=== PATIENT | female | born 1950 | race Caucasian/White ===

== ENCOUNTER 2021-12-25 21:49 | Inpatient (IN) | payer MEDICARE ==
[~2021-12-25] VITALS: Ht 162.6 cm; Wt 54.5 kg
--- NOTE | 2021-12-25 21:30 | NUR ---
Transferred from [facility] ER via EMS. A &O, in NAD. Aspen historian.
[2021-12-25 23:00] VITALS: BP 123/61
[2021-12-26 03:00] VITALS: BP 129/75
[2021-12-26] MEDS: methylPREDNISolone SOD SUCC PF 40 MG/ML VIAL. IV SCH ×3 (05:53→22:15)
[2021-12-26] MEDS: IPRATRPIUM/ALBUTEROL 0.5/2.5MG 3 ML NEBU. NEB SCH ×4 (06:15→20:01)
--- NOTE | 2021-12-26 06:30 | NUR ---
Rec'd 1st nebulizer treatment. Has slept soundly w/o dyspnea.
[2021-12-26 07:00] VITALS: BP 123/74
[2021-12-26] MEDS: AZITHROMYCIN 250 MG TABLET. PO SCH (08:42)
[2021-12-26 11:00] VITALS: BP 126/68
[2021-12-26] MEDS ORDERED: OLAN5TAB67 PO (11:01)
[2021-12-26] MEDS ORDERED: DIAZ5TAB4 PO (11:01)
[2021-12-26] MEDS ORDERED: MIRT-8 PO (11:01)
[2021-12-26] MEDS ORDERED: AZIT500T4 PO (11:02)
[2021-12-26 13:09] LABS: BASE EXCESS ABG 25 mmol/L (-3-3); HCO3 ABG 57 mmol/L (21-28); PO2 ABG 63 mmHg (65-108); SAT O2 ABG 93 % (92-99)
[2021-12-26 13:13] LABS: PCO2 ABG 116 mmHg (35-46)
[2021-12-26 13:14] LABS: FIO2 ABG 2.5 LPM
[2021-12-26 13:35] LABS: HEMATOCRIT 34.9 % (36.0-47.0); HEMOGLOBIN 10.9 g/dL (12.0-15.5); RED BLOOD COUNT 4.05 x10^6/uL (3.50-5.40); WHITE BLOOD COUNT 14.6 x10^3/uL (4.0-11.0)
[2021-12-26 13:39] LABS: ANION GAP 0 (6-14); BLOOD UREA NITROGEN 8 mg/dL (7-20); CALCIUM 8.8 mg/dL (8.5-10.1); CARBON DIOXIDE > 45 mmol/L (21-32); CHLORIDE 90 mmol/L (98-107); CREATININE 0.4 mg/dL (0.6-1.0); GFR 157.8; GLUCOSE 121 mg/dL (70-99); MAGNESIUM 2.1 mg/dL (1.8-2.4); POTASSIUM 4.3 mmol/L (3.5-5.1); SODIUM 135 mmol/L (136-145)
--- NOTE | 2021-12-26 14:48 | HP ---
DATE OF SERVICE: 12/26/2021 ADMIT DATE: 12/25/2021 HISTORY OF PRESENT ILLNESS: The patient is a 71-year-old female patient who presented to the Emergency Room of [facility] with worsening shortness of breath that apparently started the day before admission and has been gradually getting worse. The patient is known to have COPD and emphysema and used her nebulizer without much improvement. She apparently spoke with her maintenance welder who told her to come to the Emergency Room. The patient has had multiple hospitalizations. She stated that she is worse than she usually is. She has never had to be intubated for her COPD before, has had her COVID vaccine plus booster does of influenza vaccine and her pneumococcal vaccine. She denied any fever, cough or other systemic complaints, and she is normally on 2-3 liters by nasal cannula. She apparently has turned it up before she arrived and put on her oxygen at 2.5 liters. Her oxygen saturation was in the 70s. She increased her oxygen to 4 liters with improvement in her oxygen saturation. She was extensively investigated in the Emergency Room of [facility] and had lab work and imaging studies. Her lab work showed white cell count was 2.5 and she has hyponatremia and also hypochloremia and elevated bicarbonate. The combination suggested using either diuretics and/or vomiting, although the patient denied any vomiting. Her venous blood gas showed a pH of 7.40, pCO2 of 84, pO2 of 27 and bicarbonate of 53. Her D-dimer was slightly elevated at 1.22. Urinalysis was essentially unremarkable and her influenza A and B as well as coronavirus by rapid testing was negative. Her chest x-ray showed bilateral perihilar and basilar opacities, likely pulmonary edema or infection. She has trace bilateral pleural effusion. She did have CT angio of the chest, which showed no evidence of central pulmonary emboli. She has persistent bronchiectasis in the posterior basal segment of the left lower lobe and bilateral lung apices. She has briefly described pleural opacities, slightly more prominent compared to the prior exam, though this increased prominence could be in part related to subsegmental atelectasis and/or infiltrate. She has bibasilar infiltrate noted. Infectious and/or inflammatory etiologies should be considered. She has left upper lobe scarring, atelectasis and/or infiltrate appears similar compared to prior exam. The patient is known to have Mycobacterium avium-intracellulare and she is on suppressive therapy in the form of azithromycin 500 mg 3 times a week. According to the patient's , when her bacterial infection flares up, she tends to develop these symptoms. The patient was treated with ceftriaxone as well as Zithromax and was given also methylprednisolone and bronchodilator treatment and was transferred to [facility] for further evaluation and to consult the maintenance welder. PAST MEDICAL HISTORY: Significant for anxiety and depression, bronchial asthma, COPD as well as history of diverticulitis, Mycobacterium avium complex pneumonia. PAST SURGICAL HISTORY: Significant for bilateral cataract extraction, appendectomy, cholecystectomy, partial colectomy and colostomy with takedown. ALLERGIES: SHE IS ALLERGIC TO SULFA DRUGS. MEDICATIONS: She is currently on the following medications: She is on azithromycin 500 mg Thursday, Thursday, Thursday. She is no longer on ethambutol or rifampin. She is on albuterol sulfate 1 puff every 6 hours, aspirin 81 mg once a day, lorazepam 1 mg 3 times a day, and hydroxyzine 25 mg 3 times a day. FAMILY HISTORY: She is single child. Both parents are . Her father at the age of 89. Mother at age 86. SOCIAL HISTORY: She is , has 1 son. She tried smoking for 1 year when she was 20 years old. She has not smoked since. She does not drink alcohol or use recreational drugs. She used to work in a warehouse, however, she has been retired. REVIEW OF SYSTEMS: The patient denied any blurring of vision, cataracts, glaucoma or macular degeneration. Denied any earache, tinnitus or sensory deafness. Denied any nosebleed, stuffy nose or postnasal drip. Denied any sore throat, sore tongue, toothache, hoarseness of voice or difficulty swallowing. She has some anorexia, but denied any nausea, vomiting, diarrhea or constipation. Denied any hematemesis, melena or hematochezia. Denied any dysuria, frequency or hematuria. PHYSICAL EXAMINATION: GENERAL: On arrival to the Emergency Room, the patient was pale, cachectic, but not jaundiced or cyanosed, no lymphadenopathy, no thyromegaly, no jugular venous distention. No limb edema. VITAL SIGNS: Her heart rate was 110, blood pressure was 136/72, temperature was 98, respiratory rate was 18, and oxygen saturation was 80% on 4 liters. HEAD, EYES, EARS, NOSE, AND THROAT: Normocephalic, atraumatic. NECK: Supple. HEART: Showed normal first and second heart sounds. No gallop, rub or murmur. CHEST: Shows central trachea, equally reduced chest expansion, reduced air entry, vesicular breath sounds, bilateral coarse crepitation and very few scattered rhonchi. ABDOMEN: Distended, soft, nontender. NEUROLOGIC: She is awake, alert, responding appropriately. All cranial nerves intact. She moves extremities without difficulty. She definitely has marked muscle wasting and weakness. LABORATORY DATA: On arrival showed a white cell count of 10.5, hemoglobin 11.7, hematocrit 36, MCV 86, and platelet count of 248,000 with a manual differential showed 82% polymorphs, 7% lymphocytes and 10% monocytes. Her chemistry showed a serum sodium of 126, potassium 3.9, chloride 82, bicarbonate 35, anion gap of 9, BUN 9, creatinine 0.4, estimated GFR was 157 mL per minute, her glucose 192, calcium was 8.5, phosphorus 3.2, magnesium 2. Total bilirubin, AST, ALT, alkaline phosphatase were normal. Troponin I high sensitivity , beta natriuretic peptide was 975. Total protein 7.7, albumin was 2.9. Venous blood gas showed a pH 7.40, pCO2 of 84, pO2 of 27, bicarbonate of 53, and oxygen saturation was 47% on FiO2 of 21%. Her urinalysis showed trace leukocyte esterase, 3-5 rbc's, 5-10 wbc's and very few bacteria. Her influenza A and B were negative and SARS-CoV-2 antigen rapid testing was negative. ASSESSMENT AND PLAN: In summary, the patient was diagnosed with hyponatremia, pneumonia, chronic obstructive pulmonary disease. She has a history of Mycobacterium avium complex for which she is on suppressive treatment in the form of azithromycin. She also has history of paroxysmal atrial fibrillation with questionable congestive heart failure. The patient was transferred to [facility] to continue all her medications. I will consult the maintenance welder as well as the chicken hatchery helper. [facility] [place]: Marycruz TID: [id number]
[2021-12-26 15:00] VITALS: BP 127/69
--- NOTE | 2021-12-26 15:58 | NUR ---
SS following for discharge planning. SS reviewed pt chart and discussed with pt RN. Pt is from home with spouse and is currently requiring oxygen at four liters nasal canula. Pulmonology and Cardiology consulted. Pt on IV Rocephin and IV Solu-Medrol. Pt has home oxygen. SS will continue to follow for discharge planning.
--- NOTE | 2021-12-26 16:00 | PDOC2 ---
HELDER MOSS ENVIRONMENTAL MARKETER 12/26/21 1600: CARDIAC CONSULT DATE OF CONSULT Date of Consult DATE: 12/26/21 TIME: 15:55 REASON FOR CONSULT Reason for Consult: CHF, afib REFERRING PHYSICIAN Referring Physician: David SOURCE Source: Chart review, Patient HISTORY OF PRESENT ILLNESS HISTORY OF PRESENT ILLNESS This is a pleasant 71 yo female admitted for complains of shortness of breath. She was initially at [facility] and transferred here for further treatmen and referral to pulmonary. She has hx of COPD and mycobacterium avium pneumonia and uses home O2. No fever or chills. Denies any frequent palpitations and denies any arrhythmia, CAD or VTE. No increasing leg swelling. She has been SOA for a few days now despite using O2 at home. No confusion and presently no significant SOA. PAST MEDICAL HISTORY Cardiovascular: CHF, Valve insufficiency, Other (cardiomyopathy) Pulmonary: Asthma, COPD, Pneumonia GI: Diverticulosis PAST SURGICAL HISTORY Past Surgical History: Appendectomy, Cholecystectomy, Colon Resection FAMILY HISTORY Family History: Heart Disease (grandfather) SOCIAL HISTORY Smoke: No ALCOHOL: none Drugs: None Lives: with Family CURRENT MEDICATIONS CURRENT MEDICATIONS Current Medications Medications (Trade) Dose Ordered Sig/Danae Route PRN Reason Start Time Stop Time Status Last Admin Dose Admin Albuterol/ Ipratropium (Duoneb) 3 ml RTQID NEB 12/26/21 08:00 12/26/21 12:11 Methylprednisolone Sodium Succinate (SOLU-Medrol 40MG VIAL) 40 mg Q8HRS IV 12/26/21 06:00 12/26/21 14:08 Azithromycin (Zithromax) 250 mg DAILY PO 12/26/21 09:00 12/26/21 08:42 ALLERGIES ALLERGIES: Coded Allergies: Sulfa (Sulfonamide Antibiotics) (Verified Allergy, Intermediate, 12/25/21) headache ROS Review of System 14 point ROS evaluated with pertinent positives noted per HPI PHYSICAL EXAM General: Alert, Oriented X3, Cooperative, No acute distress HEENT: Atraumatic, Mucous membr. moist/pink Lungs: Other (diffuse rhonchi) Heart: Regular rate (no tele, EKG review with SR with first degreee AV block with PACs), Other (could not appreciate heart sounds due to lung adventitious sounds) Abdomen: Soft, No tenderness Extremities: No cyanosis, No edema Skin: No breakdown, No significant lesion Neuro: Normal speech, Sensation intact Psych/Mental Status: Mental status NL, Mood NL MUSCULOSKELETAL: Osteoarthritic changes both hands VITALS/I&O VITALS/I&O: Vital Signs Date Time Temp Pulse Resp B/P (MAP) Pulse Ox O2 Delivery O2 Flow Rate FiO2 12/26/21 12:11 97 Nasal Cannula 3.0 12/26/21 11:00 98.1 92 18 126/68 (87) 98.1 LABS Lab: Laboratory Tests Test 12/26/21 11:13 12/26/21 13:19 O2 Saturation 93 % (92-99) Arterial Blood pH 7.31 (7.35-7.45) L Arterial Blood pCO2 at Patient Temp 116 mmHg (35-46) *H Arterial Blood pO2 at Patient Temp 63 mmHg (65-108) L Arterial Blood HCO3 57 mmol/L (21-28) H Arterial Blood Base Excess 25 mmol/L (-3-3) H FiO2 2.5 lpm White Blood Count 14.6 x10^3/uL (4.0-11.0) H Red Blood Count 4.05 x10^6/uL (3.50-5.40) Hemoglobin 10.9 g/dL (12.0-15.5) L Hematocrit 34.9 % (36.0-47.0) L Mean Corpuscular Volume 86 fL (79-100) Mean Corpuscular Hemoglobin 27 pg (25-35) Mean Corpuscular Hemoglobin Concent 31 g/dL (31-37) Red Cell Distribution Width 14.0 % (11.5-14.5) Platelet Count 256 x10^3/uL (140-400) Sodium Level 135 mmol/L (136-145) L Potassium Level 4.3 mmol/L (3.5-5.1) Chloride Level 90 mmol/L (98-107) L Carbon Dioxide Level > 45 mmol/L (21-32) H Anion Gap 0 (6-14) L Blood Urea Nitrogen 8 mg/dL (7-20) Creatinine 0.4 mg/dL (0.6-1.0) L Estimated GFR (Cockcroft-Gault) 157.8 Glucose Level 121 mg/dL (70-99) H Calcium Level 8.8 mg/dL (8.5-10.1) Magnesium Level 2.1 mg/dL (1.8-2.4) Laboratory Tests 12/26/21 13:19 Laboratory Tests 12/26/21 13:19 ECHOCARDIOGRAM ECHOCARDIOGRAM <Conclusion> The Ejection Fraction is 40-45%. There is mild global hypokinesis of the left ventricle. Septal motion consistent with conduction defect. Doppler and Color-flow revealed mild to moderate eccentric mitral regurgitation. Doppler and Color Flow revealed mild tricuspid regurgitation. There is moderate pulmonary hypertension. The PA pressure was estimated at 48 mmHg. DATE: 03/27/20 1409 STRESS TEST STRESS TEST Conclusion 1. No evidence of EKG changes with stress testing. 2. Normal perfusion at stress/rest. 3. Low risk study. 4. EF > 60%. DATE: 04/19/20 1226 ASSESSMENT/PLAN ASSESSMENT/PLAN 1. AECOPD with bronchiectasis 2. Hx of Mycobacterium avum pneumonia 3. Acute on chronic hypercapnic respiratory failure: noted CO2 116. appears c ompensated. Unclear CO2 baseline 4. Hx of NICM 5. Hx of moderate MR 6. Chronic diastolic CHF: SOA more from #1 7. Arrhythmia: presently no tele. EKG reviewed with SR first degree AV block with PACs. No AFIB 8. Hyponatremia: improved Recommendations 1. Pulmonary consult 2. Repeat ABG. Bipap PRN 3. Antibiotics per PCP 4. TTE. Place on tele monitor. 5. Supportive care VINNIE TUBBS MD 12/26/212226: CARDIAC CONSULT ASSESSMENT/PLAN ASSESSMENT/PLAN Patient seen and examined. Agree with GAS AND OIL CHECKER's assessment and plan as noted above Check 2D echo and monitor tele for any arrhythmias Thank you for yoour consultation HELDER MOSS ENVIRONMENTAL MARKETER Dec 26, 2021 16:00 VINNIE TUBBS MD Dec 26, 2021 22:27
[2021-12-26] MEDS: cefTRIAXone IV Push 1 GM VIAL. IVP SCH (17:06)
[2021-12-26 19:00] VITALS: BP 106/54
[2021-12-26] MEDS: riFAMpin 300 MG CAPSULE. PO SCH (20:56)
[2021-12-26] MEDS: ETHAMBUTOL HCL 400 MG TABLET PO SCH (20:56)
[2021-12-26] MEDS: MIRTAZAPINE 15 MG TABLET PO SCH (20:57)
[2021-12-26] MEDS: LACTOBACILLUS RHAMNOSUS GG 1 CAPSULE. PO SCH (20:57)
[2021-12-26] MEDS: OLANZapine 5 MG TABLET PO SCH (20:58)
[2021-12-26 23:00] VITALS: BP 121/61
[2021-12-27 03:00] VITALS: BP 132/67
--- NOTE | 2021-12-27 04:06 | PN ---
DATE: 12/26/2021 SUBJECTIVE: The patient is resting, slightly propped up in bed, in no apparent respiratory distress. On questioning her about some shortness of breath, she denied any chest pain. She has cough that is mostly dry. Denies any chills or rigors. Denied any orthopnea or paroxysmal nocturnal dyspnea. Denied any swelling of the legs. PHYSICAL EXAMINATION: GENERAL: When I examined her, she looked pale, cachectic, but no jaundice, cyanosis or thyromegaly. No jugular venous distention. No limb edema. VITAL SIGNS: Her heart rate was 92, blood pressure was 126/68, temperature was 98.1, respiratory rate was 18 and oxygen saturation was 97 percent on 3 liters of oxygen. HEAD, EYES, EARS, NOSE, AND THROAT: Showed normocephalic, atraumatic. NECK: Supple. HEART: Normal first and second heart sounds. No gallop, rub or murmur. CHEST: Showed central trachea, equally reduced chest expansion, reduced air entry, vesicular breath sounds with bilateral coarse crepitation. Very few scattered rhonchi. ABDOMEN: Scaphoid, soft, nontender. NEUROLOGIC: She is awake, alert, responding appropriately. Cranial nerves intact. She moves extremities spontaneously, although she has marked muscle wasting. Her body mass index was only 20.6. LABORATORY WORK: Still pending at the time of this dictation. ASSESSMENT: 1. Acute on chronic hypoxic respiratory failure. 2. Chronic obstructive pulmonary disease exacerbation. 3. Chronic hypoxic respiratory failure. 4. Bronchiectasis. 5. History of Mycobacterium avium-intracellulare complex. The patient has a history also of atrial fibrillation with rapid ventricular response and possible congestive heart failure. PLAN: My plan is to continue with all her current medications including ceftriaxone, Zithromax, bronchodilators as well as Solu-Medrol as well as her lorazepam. I will add SCDs for DVT prophylaxis. I have consulted Dr. Ely as well as Dr. Noel to assist with her management. CARMELINA/GARY DR: Marycruz TID: [id number]
[2021-12-27] MEDS: methylPREDNISolone SOD SUCC PF 40 MG/ML VIAL. IV SCH ×3 (06:01→20:43)
[2021-12-27 06:17] LABS: BASO % 0 % (0-3); EOS % 0 % (0-3); HEMATOCRIT 34.5 % (36.0-47.0); HEMOGLOBIN 10.5 g/dL (12.0-15.5); LYMPH # 0.2 x10^3/uL (1.0-4.8); LYMPH % 2 % (24-48); MEAN CORPUSCULAR HEMOGLOBIN 26 pg (25-35); MEAN CORPUSCULAR HGB CONC 30 g/dL (31-37); MEAN CORPUSCULAR VOLUME 87 fL (79-100); MONO # 0.5 x10^3/uL (0.0-1.1); MONO % 4 % (0-9); NEUT # 11.6 x10^3/uL (1.8-7.7); NEUT % 94 % (31-73); PLATELET COUNT 237 x10^3/uL (140-400); RED BLOOD COUNT 3.98 x10^6/uL (3.50-5.40); WHITE BLOOD COUNT 12.4 x10^3/uL (4.0-11.0)
[2021-12-27 06:39] LABS: ALBUMIN 2.4 g/dL (3.4-5.0); ALBUMIN/GLOBULIN RATIO 0.5 (1.0-1.7); ALK PHOS 59 U/L (46-116); ALT (SGPT) 7 U/L (14-59); AST (SGOT) 10 U/L (15-37); BLOOD UREA NITROGEN 8 mg/dL (7-20); BUN/CREATININE RATIO 27 (6-20); C-REACTIVE PROTEIN 28.9 mg/L (0-3.3); CALCIUM 8.7 mg/dL (8.5-10.1); CHLORIDE 90 mmol/L (98-107); CREATININE 0.3 mg/dL (0.6-1.0); GFR 219.9; GLUCOSE 123 mg/dL (70-99); POTASSIUM 4.2 mmol/L (3.5-5.1); SODIUM 133 mmol/L (136-145); TOTAL BILIRUBIN 0.6 mg/dL (0.2-1.0); TOTAL PROTEIN 7.3 g/dL (6.4-8.2)
[2021-12-27 06:41] LABS: CARBON DIOXIDE > 45 mmol/L (21-32)
[2021-12-27 07:00] VITALS: BP 122/61
[2021-12-27] MEDS: IPRATRPIUM/ALBUTEROL 0.5/2.5MG 3 ML NEBU. NEB SCH ×4 (07:02→20:23)
--- NOTE | 2021-12-27 08:16 | PDOC ---
PULMONARY PROGRESS NOTES DATE: 12/27/21 TIME: 08:16 Subjective Patient still short of breath, appetite is poor, feels weak. Coughing up green sputum Vitals Vital Signs Date Time Temp Pulse Resp B/P (MAP) Pulse Ox O2 Delivery O2 Flow Rate FiO2 12/27/21 07:02 92 Nasal Cannula 2.5 12/27/21 07:00 97.4 98 16 122/61 (81) 97.4 ROS: No Nausea, No Chest Pain, No Abdominal Pain, No Increase Cough General: Alert Lungs: Crackles Cardiovascular: S1, S2 Abdomen: Soft Neuro Exam: Alert Extremities: No Edema Skin: Warm Labs Laboratory Tests Test 12/26/21 11:13 12/26/21 13:19 12/27/21 04:50 O2 Saturation 93 % (92-99) Arterial Blood pH 7.31 (7.35-7.45) Arterial Blood pCO2 at Patient Temp 116 mmHg (35-46) Arterial Blood pO2 at Patient Temp 63 mmHg (65-108) Arterial Blood HCO3 57 mmol/L (21-28) Arterial Blood Base Excess 25 mmol/L (-3-3) FiO2 2.5 lpm White Blood Count 14.6 x10^3/uL (4.0-11.0) 12.4 x10^3/uL (4.0-11.0) Red Blood Count 4.05 x10^6/uL (3.50-5.40) 3.98 x10^6/uL (3.50-5.40) Hemoglobin 10.9 g/dL (12.0-15.5) 10.5 g/dL (12.0-15.5) Hematocrit 34.9 % (36.0-47.0) 34.5 % (36.0-47.0) Mean Corpuscular Volume 86 fL (79-100) 87 fL (79-100) Mean Corpuscular Hemoglobin 27 pg (25-35) 26 pg (25-35) Mean Corpuscular Hemoglobin Concent 31 g/dL (31-37) 30 g/dL (31-37) Red Cell Distribution Width 14.0 % (11.5-14.5) 14.0 % (11.5-14.5) Platelet Count 256 x10^3/uL (140-400) 237 x10^3/uL (140-400) Sodium Level 135 mmol/L (136-145) 133 mmol/L (136-145) Potassium Level 4.3 mmol/L (3.5-5.1) 4.2 mmol/L (3.5-5.1) Chloride Level 90 mmol/L (98-107) 90 mmol/L (98-107) Carbon Dioxide Level > 45 mmol/L (21-32) > 45 mmol/L (21-32) Anion Gap 0 (6-14) (6-14) Blood Urea Nitrogen 8 mg/dL (7-20) 8 mg/dL (7-20) Creatinine 0.4 mg/dL (0.6-1.0) 0.3 mg/dL (0.6-1.0) Estimated GFR (Cockcroft-Gault) 157.8 219.9 Glucose Level 121 mg/dL (70-99) 123 mg/dL (70-99) Calcium Level 8.8 mg/dL (8.5-10.1) 8.7 mg/dL (8.5-10.1) Magnesium Level 2.1 mg/dL (1.8-2.4) Neutrophils (%) (Auto) 94 % (31-73) Lymphocytes (%) (Auto) 2 % (24-48) Monocytes (%) (Auto) 4 % (0-9) Eosinophils (%) (Auto) 0 % (0-3) Basophils (%) (Auto) 0 % (0-3) Neutrophils # (Auto) 11.6 x10^3/uL (1.8-7.7) Lymphocytes # (Auto) 0.2 x10^3/uL (1.0-4.8) Monocytes # (Auto) 0.5 x10^3/uL (0.0-1.1) Eosinophils # (Auto) 0.0 x10^3/uL (0.0-0.7) Basophils # (Auto) 0.0 x10^3/uL (0.0-0.2) BUN/Creatinine Ratio 27 (6-20) Total Bilirubin 0.6 mg/dL (0.2-1.0) Aspartate Amino Transf (AST/SGOT) 10 U/L (15-37) Alanine Aminotransferase (ALT/SGPT) 7 U/L (14-59) Alkaline Phosphatase 59 U/L (46-116) C-Reactive Protein, Quantitative 28.9 mg/L (0-3.3) Total Protein 7.3 g/dL (6.4-8.2) Albumin 2.4 g/dL (3.4-5.0) Albumin/Globulin Ratio 0.5 (1.0-1.7) Laboratory Tests Test 12/26/21 11:13 12/26/21 13:19 12/27/21 04:50 O2 Saturation 93 % (92-99) Arterial Blood pH 7.31 (7.35-7.45) Arterial Blood pCO2 at Patient Temp 116 mmHg (35-46) Arterial Blood pO2 at Patient Temp 63 mmHg (65-108) Arterial Blood HCO3 57 mmol/L (21-28) Arterial Blood Base Excess 25 mmol/L (-3-3) FiO2 2.5 lpm White Blood Count 14.6 x10^3/uL (4.0-11.0) 12.4 x10^3/uL (4.0-11.0) Red Blood Count 4.05 x10^6/uL (3.50-5.40) 3.98 x10^6/uL (3.50-5.40) Hemoglobin 10.9 g/dL (12.0-15.5) 10.5 g/dL (12.0-15.5) Hematocrit 34.9 % (36.0-47.0) 34.5 % (36.0-47.0) Mean Corpuscular Volume 86 fL (79-100) 87 fL (79-100) Mean Corpuscular Hemoglobin 27 pg (25-35) 26 pg (25-35) Mean Corpuscular Hemoglobin Concent 31 g/dL (31-37) 30 g/dL (31-37) Red Cell Distribution Width 14.0 % (11.5-14.5) 14.0 % (11.5-14.5) Platelet Count 256 x10^3/uL (140-400) 237 x10^3/uL (140-400) Sodium Level 135 mmol/L (136-145) 133 mmol/L (136-145) Potassium Level 4.3 mmol/L (3.5-5.1) 4.2 mmol/L (3.5-5.1) Chloride Level 90 mmol/L (98-107) 90 mmol/L (98-107) Carbon Dioxide Level > 45 mmol/L (21-32) > 45 mmol/L (21-32) Anion Gap 0 (6-14) (6-14) Blood Urea Nitrogen 8 mg/dL (7-20) 8 mg/dL (7-20) Creatinine 0.4 mg/dL (0.6-1.0) 0.3 mg/dL (0.6-1.0) Estimated GFR (Cockcroft-Gault) 157.8 219.9 Glucose Level 121 mg/dL (70-99) 123 mg/dL (70-99) Calcium Level 8.8 mg/dL (8.5-10.1) 8.7 mg/dL (8.5-10.1) Magnesium Level 2.1 mg/dL (1.8-2.4) Neutrophils (%) (Auto) 94 % (31-73) Lymphocytes (%) (Auto) 2 % (24-48) Monocytes (%) (Auto) 4 % (0-9) Eosinophils (%) (Auto) 0 % (0-3) Basophils (%) (Auto) 0 % (0-3) Neutrophils # (Auto) 11.6 x10^3/uL (1.8-7.7) Lymphocytes # (Auto) 0.2 x10^3/uL (1.0-4.8) Monocytes # (Auto) 0.5 x10^3/uL (0.0-1.1) Eosinophils # (Auto) 0.0 x10^3/uL (0.0-0.7) Basophils # (Auto) 0.0 x10^3/uL (0.0-0.2) BUN/Creatinine Ratio 27 (6-20) Total Bilirubin 0.6 mg/dL (0.2-1.0) Aspartate Amino Transf (AST/SGOT) 10 U/L (15-37) Alanine Aminotransferase (ALT/SGPT) 7 U/L (14-59) Alkaline Phosphatase 59 U/L (46-116) C-Reactive Protein, Quantitative 28.9 mg/L (0-3.3) Total Protein 7.3 g/dL (6.4-8.2) Albumin 2.4 g/dL (3.4-5.0) Albumin/Globulin Ratio 0.5 (1.0-1.7) Medications Active Scripts Medications Dose Route/Sig Max Daily Dose Days Date Category Azithromycin Tablet (Azithromycin) 500 Mg Tablet 1 Tab PO 3X/WEEK 5 12/26/21 Reported Diazepam 5 Mg Tablet 5 Mg PO BID 12/26/21 Reported Mirtazapine 30 Mg Tablet 1 Tab PO QHS 12/26/21 Reported Olanzapine 5 Mg Tablet 0.5 Tab PO QHS 12/26/21 Reported Impression . IMPRESSION: 1. Acute on chronic hypoxemic hypercapnic respiratory failure. 2. Abnormal CT revealing evidence of bronchiectasis in a patient with previous Mycobacterium avium complex. 3. Suspect recurrent and persistent Mycobacterium avium complex infection. 4. Possible bacterial infection, gram-negative. 5. Protein malnutrition present upon admission. 6. History of depression and anxiety. 7. History of bronchial asthma. Plan . Updated 12/27 at the bedside, updated pain Continue 3 drug regimen for active Mycobacterium avium complex infection Continue Rocephin Nebulized treatments Hypertonic saline Decrease FiO2 to 1.5 L, ABG noted. 12/26 1. We will initiate 3-drug regimen for recurrent acute Mycobacterium avium complex. Case discussed with pharmacology regarding dosages of rifampin and ethambutol. 2. Continue Zithromax. 3. Continue Rocephin. 4. Nebulized treatments. 5. Decrease FiO2 supplement to 1 liter, do not titrate up, the patient in the past has never been intubated. She has not been on noninvasive ventilation. Suspect hypercapnia is mainly related to muscle weakness and hypoventilation along with underlying and end-stage obstructive lung disease. 6. Continue nutritional support. 7. Monitor liver function testing. 8. Steroids. Dr. Hernandez, I do appreciate the privilege in sharing in the patient's care. MART LOVETT MD Dec 27, 2021 08:16
[2021-12-27] MEDS: LACTOBACILLUS RHAMNOSUS GG 1 CAPSULE. PO SCH ×2 (08:23→20:43)
[2021-12-27] MEDS: AZITHROMYCIN 250 MG TABLET. PO SCH (08:23)
--- NOTE | 2021-12-27 09:20 | CONS ---
DATE OF CONSULTATION: 12/26/2021 ATTENDING PHYSICIAN: Stephany Hernandez MD CONSULTING PHYSICIAN: Massimo Ely MD REASON FOR CONSULTATION: The patient is seen in pulmonary consultation at the request of Dr. Hernandez for abnormal chest x-ray, history of Mycobacterium avium complex, abnormal arterial blood gas. HISTORY OF PRESENT ILLNESS: The patient is a 71-year-old that was diagnosed with Mycobacterium avium complex several years ago by Dr. Barnett at [facility]. She now follows a pharmacy intake technician at [facility]. She was given a 3-drug regimen for approximately a year. She is now down to azithromycin as a prophylaxis dose. The patient presented with increasing shortness of breath, cough, mostly productive of some dark sputum. No fever, no hemoptysis. Her appetite is adequate. She thinks she has lost a great deal of weight. She presented to the Emergency Room at [facility]. She underwent a CT chest. CT was personally reviewed. There have been increasing infiltrates and reticular type of nodular infiltrates. She was transferred to [place] for further management. The scan was also performed for PE. There was no evidence of central pulmonary embolism. There was persistent bronchiectasis in the posterior segment of left lower lobe. There was also some slightly more prominent opacities in comparison to previous films. The patient is chronically on oxygen supplementation. She presented. She underwent an arterial blood gas revealing a pH 7.31, PaCO2 of 116, pO2 of 63 on 2.5 liters. I was informed of the blood gas. I asked the nurse to drop the oxygen supplementation to 1 liter. Upon my evaluation, the patient was awake, alert, following command. She did not appear to be cyanotic or confused. PAST MEDICAL HISTORY: As indicated above, prior history of chronic Mycobacterium avium complex. She has been on treatment with a 3-drug regimen for some time. She was brought down to Zithromax prophylaxis. Follows a pharmacy intake technician at [facility]. There is also a history of depression, anxiety, diverticulosis. She has never smoked. There is a history of bronchial asthma. ALLERGIES: SULFA. REVIEW OF SYSTEMS: As indicated above, otherwise a 10-point system was reviewed and negative. PAST SURGICAL HISTORY: Bilateral cataracts, appendectomy, cholecystectomy, partial colectomy, colostomy with reversal. FAMILY HISTORY: Both parents . Father at the age of 89. SOCIAL HISTORY: She is , has one son. Smoked for a short period of time when she was at the age of 20. 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 CURRENT MEDICATIONS: List was reviewed. PHYSICAL EXAMINATION: GENERAL: The patient appeared to be chronically ill. She had a body mass index of 20. She has some temporal wasting. VITAL SIGNS: Her respiratory rate was elevated. She is currently on 1 liter saturation 95%. She has been afebrile since admission. HEENT: Eyes: The sclerae were nonicteric. NECK: Jugular venous distention was not elevated. Temporal wasting was prominent. CHEST: Full expansion. LUNGS: Crackles and squeaky type of breath sounds anteriorly bilaterally. CARDIOVASCULAR: Regular rate and rhythm with S1, S2, no S3. ABDOMEN: Soft. EXTREMITIES: No clubbing or cyanosis. Minimal edema. LABORATORY DATA: White count was elevated. Hemoglobin and hematocrit were noted. Electrolytes were noted. CT as indicated above. IMPRESSION: 1. Acute on chronic hypoxemic hypercapnic respiratory failure. 2. Abnormal CT revealing evidence of bronchiectasis in a patient with previous Mycobacterium avium complex. 3. Suspect recurrent and persistent Mycobacterium avium complex infection. 4. Possible bacterial infection, gram-negative. 5. Protein malnutrition present upon admission. 6. History of depression and anxiety. 7. History of bronchial asthma. PLAN: 1. We will initiate 3-drug regimen for recurrent acute Mycobacterium avium complex. Case discussed with pharmacology regarding dosages of rifampin and ethambutol. 2. Continue Zithromax. 3. Continue Rocephin. 4. Nebulized treatments. 5. Decrease FiO2 supplement to 1 liter, do not titrate up, the patient in the past has never been intubated. She has not been on noninvasive ventilation. Suspect hypercapnia is mainly related to muscle weakness and hypoventilation along with underlying and end-stage obstructive lung disease. 6. Continue nutritional support. 7. Monitor liver function testing. 8. Steroids. Dr. Hernandez, I do appreciate the privilege in sharing in the patient's care. REBECCA/GARY DR: Brittany TID: [id number]
--- NOTE | 2021-12-27 10:09 | PN ---
DATE: 12/27/2021 SUBJECTIVE: The patient is resting, slightly propped up in bed, in no apparent respiratory distress. She is awake, alert. On questioning her, she, just apart from being cold, denied any other complaint. Nursing staff states that she has eaten her breakfast this morning. She was seen in consultation by the borematic operator who cut down her oxygen supplementation to only 1 liter. PHYSICAL EXAMINATION: GENERAL: When I saw her this morning, she looked pale, cachectic, but not jaundiced or cyanosed, no lymphadenopathy, no thyromegaly, no jugular venous distention. No lower limb edema. VITAL SIGNS: Her heart rate was 98, blood pressure was 122/61, temperature 97.4, respiratory rate was 16 and oxygen saturation was 92% on 1 liter of oxygen. HEAD, EYES, EARS, NOSE, AND THROAT: Normocephalic, atraumatic. NECK: Supple. HEART: Showed normal first and second heart sounds. No gallop or murmur. CHEST: Shows central trachea, equally reduced expansion, reduced air entry, bilateral coarse crepitation, very few scattered rhonchi. ABDOMEN: Scaphoid, soft, nontender. NEUROLOGIC: She was grossly intact. Her intake over the last 24 hours was 390, output 151. LABORATORY DATA: As of this morning, her white cell count was 12.4, hemoglobin 10.5, hematocrit 34, MCV 87 and platelet count 237,000 with a manual differential showed 94% polymorphs, 2% lymphocytes and 4% monocytes. Her serum sodium is 133, potassium 4.2, chloride 90, bicarbonate 45, anion gap of 0, BUN of 8, creatinine 0.3, estimated GFR was 219 mL per minute. Her glucose 123, calcium was 8.7. Total bilirubin, AST, ALT, alkaline phosphatase are normal. Total protein 7.3, albumin 2.4. Her sedimentation rate was 46 mm per hour and C-reactive protein was 28.9 mg/dL. ASSESSMENT: 1. Acute on chronic hypoxic hypercapnic respiratory failure. 2. Chronic obstructive pulmonary disease exacerbation. 3. Chronic hypoxic respiratory failure. 4. Bronchiectasis. 5. History of Mycobacterium avium intracellulare complex infection. 6. The patient has a history of atrial fibrillation with rapid ventricular response as well as congestive heart failure. PLAN: The patient was apparently started on her ethambutol and rifampin for her Mycobacterium avium. Continue with bronchodilator as well as steroids. Continue with oxygen supplementation as recommended by the borematic operator. Continue with IV ceftriaxone and Zithromax for possible community-acquired pneumonia. ENDY DR: Marycruz TID: [id number]
[2021-12-27 10:33] LABS: % MONOS 3 % (0-10); % SEGS 97 % (35-66); PLT ESTIMATE ADEQUATE (ADEQUATE)
[2021-12-27 11:00] VITALS: BP 120/55
[2021-12-27 11:32] LABS: BASE EXCESS ABG 23 mmol/L (-3-3); HCO3 ABG 53 mmol/L (21-28); SAT O2 ABG 84 % (92-99)
[2021-12-27 11:33] LABS: PCO2 ABG 100 mmHg (35-46)
[2021-12-27 11:34] LABS: FIO2 ABG 24% 1LNC; PO2 ABG 45 mmHg (65-108)
--- NOTE | 2021-12-27 11:57 | PDOC ---
HELDER MOSS CREDIT REPORTING CLERK 12/27/21 1157: CARDIO Progress Notes Date and Time Date of Service 12/27/2021 Time of Evaluation 1130 Subjective Subjective: No Chest Pain, No shortness of breath, No Palpitations Vitals Vitals Vital Signs Date Time Temp Pulse Resp B/P (MAP) Pulse Ox O2 Delivery O2 Flow Rate FiO2 12/27/21 11:13 89 Nasal Cannula 1.0 12/27/21 07:00 97.4 98 16 122/61 (81) 97.4 Weight Weight [ ] Input and Output Intake and Output Intake and Output 12/27/21 07:00 Intake Total 390 ml Output Total 151 ml Balance 239 ml Intake Oral 390 ml Output Urine Total 151 ml Laboratory Labs Laboratory Tests Test 12/26/21 13:19 12/27/21 04:50 12/27/21 11:30 White Blood Count 14.6 x10^3/uL (4.0-11.0) 12.4 x10^3/uL (4.0-11.0) Red Blood Count 4.05 x10^6/uL (3.50-5.40) 3.98 x10^6/uL (3.50-5.40) Hemoglobin 10.9 g/dL (12.0-15.5) 10.5 g/dL (12.0-15.5) Hematocrit 34.9 % (36.0-47.0) 34.5 % (36.0-47.0) Mean Corpuscular Volume 86 fL (79-100) 87 fL (79-100) Mean Corpuscular Hemoglobin 27 pg (25-35) 26 pg (25-35) Mean Corpuscular Hemoglobin Concent 31 g/dL (31-37) 30 g/dL (31-37) Red Cell Distribution Width 14.0 % (11.5-14.5) 14.0 % (11.5-14.5) Platelet Count 256 x10^3/uL (140-400) 237 x10^3/uL (140-400) Sodium Level 135 mmol/L (136-145) 133 mmol/L (136-145) Potassium Level 4.3 mmol/L (3.5-5.1) 4.2 mmol/L (3.5-5.1) Chloride Level 90 mmol/L (98-107) 90 mmol/L (98-107) Carbon Dioxide Level > 45 mmol/L (21-32) > 45 mmol/L (21-32) Anion Gap 0 (6-14) (6-14) Blood Urea Nitrogen 8 mg/dL (7-20) 8 mg/dL (7-20) Creatinine 0.4 mg/dL (0.6-1.0) 0.3 mg/dL (0.6-1.0) Estimated GFR (Cockcroft-Gault) 157.8 219.9 Glucose Level 121 mg/dL (70-99) 123 mg/dL (70-99) Calcium Level 8.8 mg/dL (8.5-10.1) 8.7 mg/dL (8.5-10.1) Magnesium Level 2.1 mg/dL (1.8-2.4) Neutrophils (%) (Auto) 94 % (31-73) Lymphocytes (%) (Auto) 2 % (24-48) Monocytes (%) (Auto) 4 % (0-9) Eosinophils (%) (Auto) 0 % (0-3) Basophils (%) (Auto) 0 % (0-3) Neutrophils # (Auto) 11.6 x10^3/uL (1.8-7.7) Lymphocytes # (Auto) 0.2 x10^3/uL (1.0-4.8) Monocytes # (Auto) 0.5 x10^3/uL (0.0-1.1) Eosinophils # (Auto) 0.0 x10^3/uL (0.0-0.7) Basophils # (Auto) 0.0 x10^3/uL (0.0-0.2) Segmented Neutrophils % 97 % (35-66) Monocytes % 3 % (0-10) Platelet Estimate Adequate (ADEQUATE) Erythrocyte Sedimentation Rate 46 (0-25) BUN/Creatinine Ratio 27 (6-20) Total Bilirubin 0.6 mg/dL (0.2-1.0) Aspartate Amino Transf (AST/SGOT) 10 U/L (15-37) Alanine Aminotransferase (ALT/SGPT) 7 U/L (14-59) Alkaline Phosphatase 59 U/L (46-116) C-Reactive Protein, Quantitative 28.9 mg/L (0-3.3) Total Protein 7.3 g/dL (6.4-8.2) Albumin 2.4 g/dL (3.4-5.0) Albumin/Globulin Ratio 0.5 (1.0-1.7) O2 Saturation 84 % (92-99) Arterial Blood pH 7.34 (7.35-7.45) Arterial Blood pCO2 at Patient Temp 100 mmHg (35-46) Arterial Blood pO2 at Patient Temp 45 mmHg (65-108) Arterial Blood HCO3 53 mmol/L (21-28) Arterial Blood Base Excess 23 mmol/L (-3-3) FiO2 24% 1lnc Physical Exam HEENT: Neck Supple W Full Motion Chest: Symmetric LUNGS: Other (diffuse rhonchi) Heart: RRR (SR/ST) Abdomen: Soft N/T Extremities: No Edema Neurology: alert, oriented, follow commands Assessment Assessment 1. AECOPD with bronchiectasis 2. recurrent Mycobacterium avium pneumonia per pulmonary 3. Acute on chronic hypoxemic hypercapnic respiratory failure: appears compensated. Unclear CO2 baseline 4. Hx of NICM 5. Hx of moderate MR 6. Chronic diastolic CHF: SOA more from #1 7. Arrhythmia: EKG reviewed with SR first degree AV block with PACs. No AFIB. Presently sinus tachycardia, reactive post albuterol treatment 8. Hyponatremia: improved Recommendations 1. Antibiotics per Pulmonary 2. Secondary prevention measures pending TTE 3. Supportive care Justicifation of Admission Dx: Justifications for Admission: Justification of Admission Dx: Yes VINNIE TUBBS MD 12/27/212224: CARDIO Progress Notes Assessment Assessment Patient seen and examined. Agree with WORKSHOP MANAGER's assessment and plan as noted above 2D echo showed normal LV systolic function Chr diast HF well compensated Continue treatment o AECOPD per pulm team Follow up with our office as schedule HELDER MOSS APRN Dec 27, 2021 11:57 VINNIE TUBBS MD Dec 27, 2021 22:25
[2021-12-27] MEDS: ETHAMBUTOL HCL 400 MG TABLET PO SCH (12:44)
--- NOTE | 2021-12-27 14:24 | NUR ---
SS following up with discharge planning. SS reviewed pt chart and discussed with pt RN. Pt is currently requiring oxygen at two and a half liters nasal canula. Pulmonology and Cardiology following. Pt on IV Solu-Medrol and IV Rocephin. Pt has home oxygen. SS will continue to follow for discharge planning.
[2021-12-27 15:00] VITALS: BP 133/67
[2021-12-27] MEDS: cefTRIAXone IV Push 1 GM VIAL. IVP SCH (15:47)
[2021-12-27] MEDS: riFAMpin 300 MG CAPSULE. PO SCH (15:47)
--- NOTE | 2021-12-27 18:45 | CARD ---
MR#: [id number] Date of Study: 12/27/2021 Ordering Physician: HELDER MOSS, Referring Physician: HELDER MOSS Tech: Brittani Roa [facility] APPROVED REPORT EXAM: Two-dimensional and M-mode echocardiogram with Doppler and color Doppler. Other Information Quality : AverageHR: 90bpm Rhythm : NSR INDICATION Dyspnea 2D DIMENSIONS RVDd3.1 (2.9-3.5cm)Left Atrium(2D)3.4 (1.6-4.0cm) IVSd1.0 (0.7-1.1cm)Aortic Root(2D)3.5 (2.0-3.7cm) LVDd5.4 (3.9-5.9cm)LVOT Diameter2.0 (1.8-2.4cm) PWd0.9 (0.7-1.1cm)LVDs4.1 (2.5-4.0cm) FS (%) 24.5 %SV68.2 ml LVEF(%)48.1 (>50%) Aortic Valve AoV Peak Breezy.194.0cm/sAoV VTI36.0cm AO Peak GR.15.1mmHgLVOT Peak Breezy.134.5cm/s AO Mean GR.7mmHgAVA (VMAX)2.16cm2 Pulmonary Valve PV Peak Cwwgvcbw38.8cm/s Tricuspid Valve TR P. Kfyqjjwu227gy/sTR Peak Gr.48mmHg LEFT VENTRICLE The left ventricle is normal size. There is normal left ventricular wall thickness. The left ventricl e systolic function is normal. The ejection fraction is estimated at 55%. RIGHT VENTRICLE The right ventricle is normal size. There is normal right ventricular wall thickness. Systolic functi on is moderately reduced. ATRIA The left atrium size is normal. Right atrium is moderately enlarged. The interatrial septum is intact with no evidence for an atrial septal defect or patent foramen ovale as noted on 2-D or Doppler imag ing. AORTIC VALVE The aortic valve is normal in structure and function. Doppler and Color Flow revealed trace aortic re gurgitation. There is no significant aortic valvular stenosis. MITRAL VALVE The mitral valve is normal in structure and function. There is no evidence of mitral valve prolapse. There is no mitral valve stenosis. Doppler and Color-flow revealed mild mitral regurgitation. TRICUSPID VALVE The tricuspid valve is normal in structure and function. Doppler and Color Flow revealed mild tricusp id regurgitation. Estimated PAP 50 mmHg. There is no tricuspid valve stenosis. PULMONIC VALVE The pulmonary valve is normal in structure and function. Doppler and Color Flow revealed trace pulmon ic valvular regurgitation. GREAT VESSELS The aortic root is normal in size. The ascending aorta is normal in size. The IVC is normal in size a nd collapses >50% with inspiration. PERICARDIAL EFFUSION There is no evidence of significant pericardial effusion. Critical Notification Critical Value: No <Conclusion> The left ventricle systolic function is normal. The ejection fraction is estimated at 55%. Mild mitral regurgitation. Mild tricuspid regurgitation. Estimated PAP 50 mmHg. There is no evidence of significant pericardial effusion. Signed by : Caden Acosta, Electronically Approved : 12/27/2021 18:45:38
[2021-12-27 19:00] VITALS: BP 121/62
[2021-12-27] MEDS: SODIUM CHLORIDE 3% NEB SCH (20:00)
[2021-12-27] MEDS: MIRTAZAPINE 15 MG TABLET PO SCH (20:43)
[2021-12-27] MEDS: OLANZapine 5 MG TABLET PO SCH (20:43)
[2021-12-27 23:00] VITALS: BP 145/73
[2021-12-28 03:03] VITALS: BP 141/86
[2021-12-28] MEDS: methylPREDNISolone SOD SUCC PF 40 MG/ML VIAL. IV SCH ×2 (05:30→14:06)
[2021-12-28 07:00] VITALS: BP 137/71
[2021-12-28] MEDS: IPRATRPIUM/ALBUTEROL 0.5/2.5MG 3 ML NEBU. NEB SCH ×3 (07:06→15:30)
--- NOTE | 2021-12-28 07:19 | PDOC ---
PROGRESS NOTES Date of Service: DATE: 12/28/21 TIME: 07:19 Subjective Subjective c/o dyspnea Objective Objective Vital Signs Date Time Temp Pulse Resp B/P (MAP) Pulse Ox O2 Delivery O2 Flow Rate FiO2 12/28/21 07:08 95 Nasal Cannula 1.5 12/28/21 03:03 97.9 110 20 141/86 (104) 97.9 Intake and Output 12/28/21 07:00 Intake Total 250 ml Output Total 200 ml Balance 50 ml Intake Oral 250 ml Output Urine Total 200 ml # Voids 3 Assessment Assessment 1. AECOPD with bronchiectasis 2. Recurrent Mycobacterium avium pneumonia per pulmonary 3. Acute on chronic hypoxemic hypercapnic respiratory failure: appears compensated. Unclear CO2 baseline 4. Hx of NICM 5. Hx of moderate MR 6. Chronic diastolic CHF: SOA more from #1 7. Arrhythmia: EKG reviewed with SR first degree AV block with PACs. No AFIB. 8. Hyponatremia: improved Recommendations 1. Antibiotics per Pulmonary 2. 2D echo showed normal LV systolic function with EF 55% 3. Supportive care Comment Review of Relevant I have reviewed the following items mateusz (where applicable) has been applied. Labs Laboratory Tests Test 12/27/21 11:30 O2 Saturation 84 % (92-99) Arterial Blood pH 7.34 (7.35-7.45) Arterial Blood pCO2 at Patient Temp 100 mmHg (35-46) Arterial Blood pO2 at Patient Temp 45 mmHg (65-108) Arterial Blood HCO3 53 mmol/L (21-28) Arterial Blood Base Excess 23 mmol/L (-3-3) FiO2 24% 1lnc Medications Current Medications Sodium Chloride (Sodium Chloride 3% Neb) 5 ml RTQID NEB ; Start 12/27/21 at 16:00 Vitals/I & O Vital Sign - Last 24 Hours 12/27/21 12/27/21 12/27/21 12/27/21 08:00 11:00 11:13 15:00 Temp 98.2 98.4 98.2 98.4 Pulse 106 107 Resp 18 16 B/P (MAP) 120/55 (76) 133/67 (89) Pulse Ox 90 89 90 O2 Delivery Nasal Cannula Nasal Cannula Nasal Cannula Nasal Cannula O2 Flow Rate 1.0 2.5 1.0 2.5 12/27/21 12/27/21 12/27/21 12/27/21 15:10 19:00 19:05 20:23 Temp 98.2 98.2 Pulse 104 Resp 20 B/P (MAP) 121/62 (81) Pulse Ox 89 89 90 O2 Delivery Nasal Cannula Nasal Cannula Nasal Cannula Nasal Cannula O2 Flow Rate 1.0 1.0 2.0 12/27/21 12/28/21 12/28/21 23:00 03:03 07:08 Temp 98.1 97.9 98.1 97.9 Pulse 126 110 Resp 20 20 B/P (MAP) 145/73 (97) 141/86 (104) Pulse Ox 91 95 95 O2 Delivery Nasal Cannula Nasal Cannula Nasal Cannula O2 Flow Rate 1.5 Intake and Output 12/27/21 12/27/21 12/28/21 15:00 23:00 07:00 Intake Total 250 ml Output Total 200 ml Balance 250 ml -200 ml VINNIE TUBBS MD Dec 28, 2021 07:19
[2021-12-28] MEDS: SODIUM CHLORIDE 3% NEB SCH ×4 (08:00→15:35)
[2021-12-28 08:25] LABS: BLOOD UREA NITROGEN 10 mg/dL (7-20); CALCIUM 8.8 mg/dL (8.5-10.1); CHLORIDE 85 mmol/L (98-107); CREATININE 0.4 mg/dL (0.6-1.0); GFR 157.8; GLUCOSE 101 mg/dL (70-99); SODIUM 126 mmol/L (136-145)
[2021-12-28 08:26] LABS: CARBON DIOXIDE > 45 mmol/L (21-32)
--- NOTE | 2021-12-28 08:47 | PDOC ---
PULMONARY PROGRESS NOTES DATE: 12/28/21 TIME: 08:46 Subjective Patient continues to feel poorly, increasing shortness of breath with minimal exertion Unable to cough up much Appetite is poor Vitals Vital Signs Date Time Temp Pulse Resp B/P (MAP) Pulse Ox O2 Delivery O2 Flow Rate FiO2 12/28/21 07:08 95 Nasal Cannula 1.5 12/28/21 07:00 97.0 104 20 137/71 (93) 97.0 ROS: No Nausea, No Chest Pain, No Abdominal Pain, No Increase Cough General: Alert Lungs: Crackles Cardiovascular: S1, S2 Abdomen: Soft Neuro Exam: Alert Extremities: No Edema Skin: Warm Labs Laboratory Tests Test 12/26/21 11:13 12/26/21 13:19 12/27/21 04:50 12/27/21 11:30 O2 Saturation 93 % (92-99) 84 % (92-99) Arterial Blood pH 7.31 (7.35-7.45) 7.34 (7.35-7.45) Arterial Blood pCO2 at Patient Temp 116 mmHg (35-46) 100 mmHg (35-46) Arterial Blood pO2 at Patient Temp 63 mmHg (65-108) 45 mmHg (65-108) Arterial Blood HCO3 57 mmol/L (21-28) 53 mmol/L (21-28) Arterial Blood Base Excess 25 mmol/L (-3-3) 23 mmol/L (-3-3) FiO2 2.5 lpm 24% 1lnc White Blood Count 14.6 x10^3/uL (4.0-11.0) 12.4 x10^3/uL (4.0-11.0) Red Blood Count 4.05 x10^6/uL (3.50-5.40) 3.98 x10^6/uL (3.50-5.40) Hemoglobin 10.9 g/dL (12.0-15.5) 10.5 g/dL (12.0-15.5) Hematocrit 34.9 % (36.0-47.0) 34.5 % (36.0-47.0) Mean Corpuscular Volume 86 fL (79-100) 87 fL (79-100) Mean Corpuscular Hemoglobin 27 pg (25-35) 26 pg (25-35) Mean Corpuscular Hemoglobin Concent 31 g/dL (31-37) 30 g/dL (31-37) Red Cell Distribution Width 14.0 % (11.5-14.5) 14.0 % (11.5-14.5) Platelet Count 256 x10^3/uL (140-400) 237 x10^3/uL (140-400) Sodium Level 135 mmol/L (136-145) 133 mmol/L (136-145) Potassium Level 4.3 mmol/L (3.5-5.1) 4.2 mmol/L (3.5-5.1) Chloride Level 90 mmol/L (98-107) 90 mmol/L (98-107) Carbon Dioxide Level > 45 mmol/L (21-32) > 45 mmol/L (21-32) Anion Gap 0 (6-14) (6-14) Blood Urea Nitrogen 8 mg/dL (7-20) 8 mg/dL (7-20) Creatinine 0.4 mg/dL (0.6-1.0) 0.3 mg/dL (0.6-1.0) Estimated GFR (Cockcroft-Gault) 157.8 219.9 Glucose Level 121 mg/dL (70-99) 123 mg/dL (70-99) Calcium Level 8.8 mg/dL (8.5-10.1) 8.7 mg/dL (8.5-10.1) Magnesium Level 2.1 mg/dL (1.8-2.4) Neutrophils (%) (Auto) 94 % (31-73) Lymphocytes (%) (Auto) 2 % (24-48) Monocytes (%) (Auto) 4 % (0-9) Eosinophils (%) (Auto) 0 % (0-3) Basophils (%) (Auto) 0 % (0-3) Neutrophils # (Auto) 11.6 x10^3/uL (1.8-7.7) Lymphocytes # (Auto) 0.2 x10^3/uL (1.0-4.8) Monocytes # (Auto) 0.5 x10^3/uL (0.0-1.1) Eosinophils # (Auto) 0.0 x10^3/uL (0.0-0.7) Basophils # (Auto) 0.0 x10^3/uL (0.0-0.2) Segmented Neutrophils % 97 % (35-66) Monocytes % 3 % (0-10) Platelet Estimate Adequate (ADEQUATE) Erythrocyte Sedimentation Rate 46 (0-25) BUN/Creatinine Ratio 27 (6-20) Total Bilirubin 0.6 mg/dL (0.2-1.0) Aspartate Amino Transf (AST/SGOT) 10 U/L (15-37) Alanine Aminotransferase (ALT/SGPT) 7 U/L (14-59) Alkaline Phosphatase 59 U/L (46-116) C-Reactive Protein, Quantitative 28.9 mg/L (0-3.3) Total Protein 7.3 g/dL (6.4-8.2) Albumin 2.4 g/dL (3.4-5.0) Albumin/Globulin Ratio 0.5 (1.0-1.7) Test 12/28/21 07:30 Sodium Level 126 mmol/L (136-145) Potassium Level 4.0 mmol/L (3.5-5.1) Chloride Level 85 mmol/L (98-107) Carbon Dioxide Level > 45 mmol/L (21-32) Anion Gap (6-14) Blood Urea Nitrogen 10 mg/dL (7-20) Creatinine 0.4 mg/dL (0.6-1.0) Estimated GFR (Cockcroft-Gault) 157.8 Glucose Level 101 mg/dL (70-99) Calcium Level 8.8 mg/dL (8.5-10.1) Laboratory Tests Test 12/27/21 11:30 12/28/21 07:30 O2 Saturation 84 % (92-99) Arterial Blood pH 7.34 (7.35-7.45) Arterial Blood pCO2 at Patient Temp 100 mmHg (35-46) Arterial Blood pO2 at Patient Temp 45 mmHg (65-108) Arterial Blood HCO3 53 mmol/L (21-28) Arterial Blood Base Excess 23 mmol/L (-3-3) FiO2 24% 1lnc Sodium Level 126 mmol/L (136-145) Potassium Level 4.0 mmol/L (3.5-5.1) Chloride Level 85 mmol/L (98-107) Carbon Dioxide Level > 45 mmol/L (21-32) Anion Gap (6-14) Blood Urea Nitrogen 10 mg/dL (7-20) Creatinine 0.4 mg/dL (0.6-1.0) Estimated GFR (Cockcroft-Gault) 157.8 Glucose Level 101 mg/dL (70-99) Calcium Level 8.8 mg/dL (8.5-10.1) Medications Active Scripts Medications Dose Route/Sig Max Daily Dose Days Date Category Azithromycin Tablet (Azithromycin) 500 Mg Tablet 1 Tab PO 3X/WEEK 5 12/26/21 Reported Diazepam 5 Mg Tablet 5 Mg PO BID 12/26/21 Reported Mirtazapine 30 Mg Tablet 1 Tab PO QHS 12/26/21 Reported Olanzapine 5 Mg Tablet 0.5 Tab PO QHS 12/26/21 Reported Impression . IMPRESSION: 1. Acute on chronic hypoxemic hypercapnic respiratory failure. 2. Abnormal CT revealing evidence of bronchiectasis in a patient with previous Mycobacterium avium complex. 3. Suspect recurrent and persistent Mycobacterium avium complex infection. 4. Possible bacterial infection, gram-negative. 5. Protein malnutrition present upon admission. 6. History of depression and anxiety. 7. History of bronchial asthma. Plan . Updated 12/28 Continue current triple antibiotics for MAC Possible bronchoscopy on Thursday if she does not bring up any sputum Continue aggressive pulmonary hygiene Hypertonic saline Continue 3 drug regimen for active Mycobacterium avium complex infection Continue Rocephin Nebulized treatments Decrease FiO2 to 1.5 L, ABG noted. MART LOVETT MD Dec 28, 2021 08:47
[2021-12-28] MEDS: ETHAMBUTOL HCL 400 MG TABLET PO SCH (09:41)
[2021-12-28] MEDS: AZITHROMYCIN 250 MG TABLET. PO SCH (09:41)
[2021-12-28] MEDS: LACTOBACILLUS RHAMNOSUS GG 1 CAPSULE. PO SCH (09:42)
[2021-12-28 11:00] VITALS: BP 167/89
--- NOTE | 2021-12-28 11:38 | PN ---
DATE: 12/28/2021 SUBJECTIVE: The patient is resting, slightly propped up in bed, in no apparent respiratory distress. She is awake, alert, apparently has an episode of confusion earlier this morning stating that, there was a construction going on and she was isolated and she was given a shot, although looking at all her medications she did not get anything subcutaneously and she is only on ceftriaxone and prednisolone both were given intravenously. PHYSICAL EXAMINATION: GENERAL: When I examined her, she looked pale, cachectic, but not jaundiced or cyanosed, no lymphadenopathy, no thyromegaly, no jugular venous distention. No limb edema. VITAL SIGNS: Her heart rate was 104, blood pressure was 137/71, temperature was 97, respiratory rate 20, and oxygen saturation was 96% on 1.5 liters of oxygen. HEAD, EYES, EARS, NOSE, AND THROAT: Showed she is normocephalic, atraumatic. NECK: Supple. HEART: Normal first and second heart sounds. No gallop or murmur. CHEST: Shows central trachea, equally reduced chest expansion, reduced air entry. Coarse bilateral crepitation. Very few scattered rhonchi. ABDOMEN: Scaphoid, soft, nontender. NEUROLOGIC: She was grossly intact. Her intake and output were incompletely recorded. LABORATORY DATA: As of yesterday showed a white cell count 12.4, hemoglobin 10.5, hematocrit 34, MCV 87 and platelet count of 237,000. Her chemistry showed serum sodium is down to 126, potassium 4, chloride 85, bicarbonate 45, anion gap of 10, BUN 10, creatinine 0.4. Estimated GFR was 157 mL per minute. Her glucose was 101 and calcium was 8.8. As of yesterday, her pH was 7.34, a pCO2 of 100, pCO2 of 45, bicarbonate was 53 and oxygen saturation was 84%. ASSESSMENT: 1. Acute on chronic hypoxic hypercapnic respiratory failure. 2. Bronchiectasis. 3. Chronic obstructive pulmonary disease exacerbation. 4. Mycobacterium avium complex infection. PLAN: Plan is to obviously continue with IV antibiotic in the form of ceftriaxone. Continue with Zithromax, ethambutol and rifampicin for her Mycobacterium avium complex infection. Continue with steroids and inhalers for COPD exacerbation. I have had a lengthy discussion with her and son regarding long-term care and they are wondering about hospice and comfort care versus aggressive therapy. Apparently, the patient herself has a living will, stating that she does not want to be intubated or mechanically ventilated and explained to the family the option of hospice at home or at jail and offered to get a hospice nurse to come and talk to them, but they would like to defer that until Thursday. DEANA DR: Marycruz TID: [id number]
[2021-12-28 15:00] VITALS: BP 150/74
[2021-12-28] MEDS: cefTRIAXone IV Push 1 GM VIAL. IVP SCH (17:05)
[2021-12-28] MEDS: riFAMpin 300 MG CAPSULE. PO SCH (17:06)
--- NOTE | 2021-12-28 19:40 | NUR ---
Patient was transferred to [facility] per family request. Bed assignment is [id number]. Orders received by Dr. Hernandez. Patient and family aware and agreeable with plans. Patient was taken to via EMS with all personal belongings, IV in the right forearm and oxygen at 1.5L. Accepting doctor is Dr. Tyrell Huitron. Report was called to EMDUND Mojica at [phone]. All transfer paperwork was sent with patient.
== END 2021-12-28 19:43 | disposition short-term general hospital (02) | DRG 177 ==
LOC: 5 NORTH 21:49
PROVIDERS: ADMIT Internal Medicine; ATTEND Internal Medicine
DX: J15.8 Pneumonia due to other specified bacteria (principal); J96.22 Acute and chronic respiratory failure with hypercapnia; J96.21 Acute and chronic respiratory failure with hypoxia; E87.1 Hypo-osmolality and hyponatremia; I50.32 Chronic diastolic (congestive) heart failure; J47.0 Bronchiectasis with acute lower respiratory infection; E46 Unspecified protein-calorie malnutrition; I42.8 Other cardiomyopathies; R65.10 Systemic inflammatory response syndrome (SIRS) of non-infectious origin without acute organ dysfunction; F32.A Depression, unspecified; F41.9 Anxiety disorder, unspecified; Z63.4 Disappearance and death of family member; Z88.2 Allergy status to sulfonamides; Z98.41 Cataract extraction status, right eye; Z98.42 Cataract extraction status, left eye; Z90.49 Acquired absence of other specified parts of digestive tract; Z68.20 Body mass index [BMI] 20.0-20.9, adult; I44.0 Atrioventricular block, first degree; I49.9 Cardiac arrhythmia, unspecified; A31.0 Pulmonary mycobacterial infection; I48.0 Paroxysmal atrial fibrillation; J43.9 Emphysema, unspecified; Z82.49 Family history of ischemic heart disease and other diseases of the circulatory system
CPT/HCPCS: 36415; 36600; 80048; 80053; 82805; 83735; 85007; 85025; 85027; 85651; 86140; 93306; 94640; 94760; J0696; J2920; A4218; C8929; G0378